=== PATIENT | female | born 1965 | race Two or more races ===

== ENCOUNTER 2016-08-19 05:46 | Inpatient (IN) | payer OTHER ==
[2016-08-19] VITALS (18 sets, daily range): BP systolic 114–155; BP diastolic 62–92
[~2016-08-19] VITALS: Ht 160 cm; Wt 80.7 kg
[2016-08-19] MEDS ORDERED: NKM (06:29)
[2016-08-19] MEDS ORDERED: LR 1000ml 1,000 ML IVLG SCH (06:51)
--- NOTE | 2016-08-19 06:54 | Anethesia Preoperative Eval ---
Anesthesia Pre-op PMH/ROS General Date of Evaluation: Aug 19, 2016 Time of Evaluation: 07:26 Anesthesiologist: Fabiana ASA Score: ASA 2 Mallampati Score Class I : Soft palate, uvula, fauces, pillars visible Class II: Soft palate, uvula, fauces visible Class III: Soft palate, base of uvula visible Class IV: Only hard plate visible Mallampati Classification: Class II Surgeon: Elizabeth Diagnosis: Back Pain Surgical Procedure: ACDF C4-7, Iliac Bone Graft Anesthesia History: none Family History: no anesthesia problems Allergies: Coded Allergies: No Known Allergies (Unverified , 08/16/16) Medications: see eMAR Past Medical History Musculoskeletal/Integumentary: Reports: other - Cervical Radiculopathy Other: obesity - BMI 31 PSxH Narrative: R Hand SX 06 Anesthesia Pre-op Phys. Exam Physician Exam Last Vital Signs Date Time Temp Pulse Resp B/P Pulse Ox O2 Delivery O2 Flow Rate FiO2 08/19/16 06:11 97.2 69 18 143/78 99 Room Air Constitutional: NAD Neurologic: CN 2-12 intact Cardiovascular: RRR Respiratory: CTA Gastrointestinal: S/NT/ND Airway Exam Mallampati Score: Class II MO: full ROM: limited Teeth: intact Anesthesia Pre-op A/P Risk Assessment & Plan Assessment: ASA 2 Plan: GA, Glidescope, BIS Status Change Before Surgery: No Pre-Antibiotics Dru Grams Ancef IV Given Within 1 Hr of Incision: Yes Time Given: 07:41 Desmond Jung MD Aug 19, 2016 06:54
--- NOTE | 2016-08-19 06:56 | Immediate Post-Op Evaluation ---
Immediate Post-Op Evalulation Immediate Post-Op Evalulation Procedure: ACDF C4-7, Iliac Bone Graft Date of Evaluation: Aug 19, 2016 Time of Evaluation: 11:34 IV Fluids: 1000 MG Blood Products: 0 Estimated Blood Loss: 75 Urinary Output: 200 Blood Pressure Systolic: 132 Blood Pressure Diastolic: 76 Pulse Rate: 64 Respiratory Rate: 16 O2 Sat by Pulse Oximetry: 100 Temperature (Fahrenheit): 97 Pain Score (1-10): 3 Nausea: No Vomiting: No Complications 0 Patient Status: awake, reacts, patent, extubated, none Hydration Status: adequate Dru Grams Ancef IV Given Within 1 Hr of Incision: Yes Desmond Jung MD Aug 19, 2016 06:56
[2016-08-19] MEDS ORDERED: Ketorolac 30mg Inj IV PRN (07:00)
[2016-08-19] MEDS ORDERED: Atropine Inj 1mg/10ml Syr IV PRN (07:00)
[2016-08-19] MEDS ORDERED: ceFAZolin 2gm/50ml Premix 50 ML IVPB ONE (07:00)
[2016-08-19] MEDS ORDERED: Norco 7.5mg/325mg tab ORAL PRN ×3 (07:00→13:30)
[2016-08-19] MEDS ORDERED: DiphenhydrAMINE 50mg/ml Inj IVP PRN (07:00)
[2016-08-19] MEDS ORDERED: Oxycodone/Acetaminophen 5-325 ORAL PRN (07:00)
[2016-08-19] MEDS ORDERED: Norco 5mg/325mg tab ORAL PRN ×2 (07:00→13:30)
[2016-08-19] MEDS ORDERED: Hydromorphone 0.5mg/0.5ml inj IVP PRN (07:00)
[2016-08-19] MEDS ORDERED: Metoclopramide 10mg/2ml Inj IVP PRN (07:00)
[2016-08-19] MEDS ORDERED: Labetalol 5mg/ml 20ml vial IV PRN (07:00)
[2016-08-19] MEDS ORDERED: fentaNYL 100 mcg/2 mL IV PRN (07:00)
[2016-08-19] MEDS ORDERED: LORazepam Inj 2mg/ml 1ml IV PRN (07:00)
[2016-08-19] MEDS ORDERED: Ketorolac 60mg Inj IV PRN (07:00)
[2016-08-19] MEDS ORDERED: Midazolam 2mg/2ml Inj IVP PRN (07:00)
[2016-08-19] MEDS ORDERED: Meperidine 25mg/ml Inj IV PRN (07:00)
[2016-08-19] MEDS ORDERED: Thrombin 5000 units TOPIC ONE (07:05)
[2016-08-19] MEDS ORDERED: Bacitracin 50000 Units Vial ONE (07:06)
[2016-08-19] MEDS ORDERED: Vancomycin 1gm inj IVPB ONE (07:06)
[2016-08-19] MEDS ORDERED: Bupivacaine w/Epi 0.5% 30ml Vial INJ ONE (07:06)
[2016-08-19] MEDS ORDERED: Acetaminophen (Non formulary) 100 ML IV ONE (07:15)
[2016-08-19] MEDS ORDERED: NS Irrig 1000ml ONE (07:30)
[2016-08-19] MEDS ORDERED: Midazolam 2mg/2ml Inj ONE (07:30)
[2016-08-19] MEDS ORDERED: fentaNYL 250mcg/5ml ONE (07:30)
[2016-08-19] MEDS ORDERED: Propofol 10mg/ml 100ml btl IV ONE (07:30)
[2016-08-19] MEDS ORDERED: Lidocaine 1% MPF 10mg/ml 5ml ONE (07:30)
[2016-08-19] MEDS ORDERED: Glycopyrrolate 0.2mg/ml 1ml Vial ONE (07:30)
[2016-08-19] MEDS ORDERED: Zemuron 50mg/5ml Inj IV ONE (07:30)
[2016-08-19] MEDS ORDERED: Neostigmine 1mg/ml 10ml Inj ONE (07:30)
[2016-08-19] MEDS ORDERED: Sterile Water Irrig 1000ml IRRIG ONE (07:30)
[2016-08-19] MEDS ORDERED: LR 1000ml ONE (07:30)
[2016-08-19] MEDS ORDERED: Dexamethasone 4mg/ml vial ONE (07:30)
--- NOTE | 2016-08-19 07:37 | Pre-Procedure Note/Attestation ---
Pre-Procedure Note/Attestation Complete Prior to Procedure Procedure Narrative: acdf c4-7 Indications for Procedure Pre-Operative Diagnosis: cervical radiculopathy Attestation I attest that I discussed the nature of the procedure; its benefits; risks and complications; and alternatives (and the risks and benefits of such alternatives ), prior to the procedure, with the patient (or the patient's legal district representative). I attest that, if there was a reasonable possibility of needing a blood transfusion, the patient (or the patient's legal district representative) was given the [facility] standardized written summary, pursuant to the [place] Blood Safety Act ([place] Health and Safety Code # 1645, as amended). I attest that I re-evaluated the patient just prior to the surgery and that there has been no change in the patient's H&P, except as documented below: SHANA ARMENTA Aug 19, 2016 07:37
--- NOTE | 2016-08-19 07:40 | 48 Hour Post Anesthesia Eval ---
Post Anesthesia Evaluation Procedure: ACDF C4-7, Iliac Bone Graft SHANA ARMENTA Aug 19, 2016 07:40
--- NOTE | 2016-08-19 11:26 | Brief Operative Note ---
Immediate Post Operative Note Operative Note Pre-op Diagnosis: cervical radiculopathy Procedure: acdf c4-7 Post-op Diagnosis: cerv radic Post-op Diagnosis: same as pre-op Findings: consistent w/pre-op dx studies Surgeon: lexi [employer] Consultant: reyes Anesthesiologist: keo Specimen: none Complications: none Condition: stable Fluids: 1000cc Estimated Blood Loss: volume - 75cc Drains: none Implant(s) used?: Yes SHANA ARMENTA Aug 19, 2016 11:26
[2016-08-19] MEDS ORDERED: HYDROmorphone 1mg/ml Carpuject IVP PRN (13:30)
[2016-08-19] MEDS ORDERED: Naloxone 0.4mg/ml Inj IVP PRN (13:30)
[2016-08-19] MEDS ORDERED: HYDROmorphone 1mg/ml Carpuject SUBQ PRN (13:30)
[2016-08-19] MEDS: D5 1/2NS 1,000 ML IV SCH ×2 (13:58→21:37)
[2016-08-19] MEDS: ceFAZolin sod 1 GM in D5W 55 ML IV SCH (14:51)
[2016-08-19] MEDS: Docusate 100mg cap ORAL SCH (17:42)
[2016-08-20] VITALS: BP 109/60
[2016-08-20] MEDS: ceFAZolin sod 1 GM in D5W 55 ML IV SCH ×2 (00:28→07:52)
[2016-08-20 04:00] VITALS: BP 106/65
[2016-08-20] MEDS: D5 1/2NS 1,000 ML IV SCH (07:52)
[2016-08-20] MEDS: Docusate 100mg cap ORAL SCH ×2 (07:52→16:51)
[2016-08-20 08:00] VITALS: BP 113/69
--- NOTE | 2016-08-20 10:13 | 48 Hour Post Anesthesia Eval ---
Post Anesthesia Evaluation Procedure: ACDF C4-7, Iliac Bone Graft Date of Evaluation: Aug 20, 2016 Time of Evaluation: 11:40 Blood Pressure Systolic: 113 0: 69 Pulse Rate: 61 Respiratory Rate: 20 Temperature (Fahrenheit): 98.0 O2 Sat by Pulse Oximetry: 98 Airway: patent Nausea: No Vomiting: No Pain Intensity: 5 If pain is > 6 Comment: Asked nurse to give pain meds now Hydration Status: adequate Cardiopulmonary Status: Stable Mental Status/LOC: patient returned to baseline Follow-up Care/Observations: As per surgery Post-Anesthesia Complications: No anesthetic complication Follow-up care needed: N/A VITOR RONQUILLO M.D. Aug 20, 2016 10:13
[2016-08-20 12:00] VITALS: BP 108/62
[2016-08-20] MEDS ORDERED: Influenza Virus Vaccine 0.5ml IM ONE (12:00)
[2016-08-20 16:00] VITALS: BP 110/78
--- NOTE | 2016-08-20 18:49 | General Progress Note ---
Progress Note Progress Note doing well min pain no arm pain o: inc cdi 5/5 motor ue lt intact brace on ap: doing well dc tonight with meds fu 7 days instructions given SHANA ARMENTA Aug 20, 2016 18:49
[2016-08-20] MEDS ORDERED: D5 1/2NS 1000ml IV ONE (19:29)
[2016-08-20] MEDS ORDERED: NS 550ML IV ONE (19:29)
[2016-08-20] MEDS ORDERED: Tubing IV Blood Pump IV ONE (19:29)
[2016-08-20] MEDS ORDERED: Tubing IV Secondary IV ONE (19:29)
--- NOTE | 2016-08-21 09:34 | Diagnostic Imaging Report ---
Indication: PAIN, Intra-Op Technique: Digital intraoperative images Comparison: None Findings: Digital intraoperative images document anterior surgical fusion of C4-C7. Impression: Intraoperative imaging, as described
--- NOTE | 2016-08-21 13:47 | Operative Note - Dictated ---
DATE OF OPERATION: 08/19/2016 PREOPERATIVE DIAGNOSIS: C4-C5, C5-C6, and C6-C7 disk protrusion/herniation with severe stenosis cord compression and bilateral upper extremity neurologic symptoms. POSTOPERATIVE DIAGNOSIS: C4-C5, C5-C6, C6-C7 disk protrusion/herniation with severe stenosis cord compression and bilateral upper extremity neurologic symptoms. PROCEDURE PERFORMED: Is the followin. Interbody arthrodesis at C4-C5,C5-C6 and C6-C7. 2. Anterior cervical instrumentation at C4 through C7. 3. Anterior cervical diskectomy and decompression of the spinal canal and foramina at C4-C5, C5-C6 and C6-C7 4. Acquisition of autograft. 5. See placement of PEEK interbody device at C4-C5, C5-C6 and C6-C7 with autograft and allograft. 6. Intraoperative use of fluoroscopy. 7. Intraoperative use of microscope. 8. SSEP/EMG/MEP. SURGEON: Chidi Johnson M.D. SCAN COORDINATOR: Shadi Franco M.D. ANESTHESIOLOGIST: Desmond Jung M.D. ANESTHESIA: General endotracheal anesthesia. ESTIMATED BLOOD LOSS: 100 cubic centimeters. INTRAVENOUS ANTIBIOTICS: 2 g of Ancef. BACKGROUND INSTRUCTIONS: The patient is a pleasant female, who failed nonoperative treatment and continued to have neck pain and upper extremity neurologic symptoms an option for above treatment was given. Risks, alternatives, and benefits were discussed with the patient. Risks include, but are not limited to, anesthesia complications including , medical complications including liver, kidney, and cardiopulmonary deficits, bleeding infection, dysphonia, dysphagia, hematoma of the neck, nerve root injury, paralysis, spinal cord injury, CSF leak, dural tear, fracture of the hardware, loosening of the hardware, need for revision decompression and fusion, swallowing difficulties, esophageal injury, tracheal injury, recurrent laryngeal nerve injury, tendon injury, as well as other complications including compartment syndrome. The patient understood and wished to proceed. All patient's questions were answered. Written and verbal consent was given. No guarantees were given. OPERATIVE FINDINGS: 1. Herniated nucleus pulposus, stenosis, disk protrusions and herniations at C4-C5, C5-C6 and C6-C7 with adherent disk herniation at C6-C7. 2. Neural foraminal stenosis at C4-C5,C5-C6 and C6-C7. DESCRIPTION OF OPERATION: The patient was brought into the operating room supine on a stretcher. Appropriate IV lines were placed by the anesthesiologist. A 2 g of Ancef was administered. The surgical timeout was called. The patient was induced and intubated without complication, was positioned onto the operating room table with the neck was placed in neutral alignment. Arms were tucked by the sides. All bony prominences were well padded as well as four extremities. SSEP/EMG/MEP monitoring leads were placed and baseline recordings were done and remained stable throughout the case. Preoperative fluoroscopy revealed the planned incision to be over C4-C5 and C6-C7. Fluoroscopy revealed the neck to be in adequate alignment. The neck was prepped and draped in the usual sterile fashion with alcohol, chlorhexidine scrub, ChloraPrep, and [place]an draping. Me and my resident assistant were probably properly prepped and gowned and incision was carried out with a scalpel on the anterior right side of the neck. Hemostasis was achieved with bipolar cautery. The platysma was incised, blunt dissection was carried out in the interval between the strap muscles and sternocleidomastoid. Superficial cervical fascia was dissected caudally as well cephalad. Carotid pulse was palpated and found to be lateral to the field of dissection. Deep cervical fascia was encountered. Once the deep cervical fascia was found, blunt dissection was carried out with [place] as well as finger dissection to find the prevertebral space. The longus coli was found on both sides of the spine and was subperiosteally dissected. The spinal needle was placed at the disk level and the C4-C5,C5-C6 and C6-7 disk spaces were positively identified. The whole case was done with the intraoperatively sterilely draped microscope. At this point, attention was diverted to doing the diskectomy at C6-C7. A belt sander stone retractors were set into place with a fresh # 15 scalpel a box incision was made in the anterior anulus with straight curved curette #1, #2 and #3 Kerrison punches, a radical diskectomy was accomplished. A high-speed drill was used to remove bone from the spinal canal. Micro set #1 and #2 Kerrison punches were used to remove the PLL. All disc herniation was removed and except for one C6 disk herniation that was completely adherent to the dura. This was drilled down to a thin disk until was no longer compressing the dura. Further manipulation of the disc, which was adherent to the dura was found to be too dangerous and there was a high chance of dural tear. Therefore, the disk was left and attached to the dura. The foramina was completely decompressed, the spinal canal was completely decompressed. Valsalva at 40 mmHg was done. There was no CSF leak. Now, the retractors would change to the C5-C6 level and with the same instruments straight curved curette and scalpel #1, #2 and #3 Kerrison punches and high-speed drill. A radical diskectomy was accomplished and endplate cartilage was removed. Endplate bone was well preserved. Drilling was done to the posterior longitudinal ligament and micro set #2 curette. The PLL was removed. All disc herniation was removed. A complete decompression of the spinal canal, the spinal cord, lateral recess foramina and a Valsalva was done. There was no CSF leak. Complete decompression was assured at C5-C6. Now, attention was diverted to C4-C5 with same instruments including a scalpel #1, #2, and #3 Kerrison punches, straight and curved curettes, micro set curettes, high speed drill, a radical diskectomy was done. Endplate cartilage was removed and endplate bone was well preserved. The anterior foramina were decompressed. All exiting nerve roots were decompressed including the spinal canal, spinal cords, lateral recess foramina and a Valsalva 40 mmHg was done. There was no CSF leak. Copious triple antibiotic solution was used at all disc spaces and now attention was given to placement of the interbody cages from the spinal element system was used with PEEK lordotic changes. Trials were placed and the following PEEK interbody devices were chosen packed with autograft from the vertebral bodies as well as allograft study from [place]. A 7 mm lordotic cage was placed at C6-C7 and a 7 mm lordotic cage was placed at C5-C6 and 6 mm lordotic cage was placed at C4-C5 with excellent recreation of lordosis. AP and lateral fluoroscopy was done and revealed the instrumentation to be in good position. Now a [place] aspect plate was chosen, 45 mm three-level plate and was fixed to the anterior surface of the C4 through the C7 vertebral bodies with 4.0 x 14 mm screws. Each screw had excellent purchase within the bone and sat below the locking mechanism of the plate appropriately. Final AP and lateral fluoroscopy revealed all instrumentation to be in good position. Final EBL was 100 mL. The wound was copiously irrigated with triple antibiotic solution throughout the case. Hemostasis was achieved. There was no bleeding, and therefore it was deemed not necessary to use a Hemovac. At this point, attention was diverted to closure. The platysma was closed with 2-0 Vicryl sutures. The subcuticular layer was closed with 3-0 Vicryl sutures. The skin was closed with Dermabond. Sterile dressing tape was placed. C-collar was placed. The patient was extubated, was taken the recovery room in stable condition and found to be neurovascularly intact. Was admitted to the hospital with spinal precaution instructions and postoperative instructions. Chidi Johnson M.D. DR: Timoteo JOB#: [id number] CC:
--- NOTE | 2016-08-21 23:20 | Discharge Summary ---
Discharge Summary Hospital Course Date of Admission Aug 19, 2016 at 05:46 Date of Discharge Aug 20, 2016 at 19:30 Admitting Diagnosis ACDF C4-7 HPI Ailyn Segundo is a 51 year old female who was admitted on Aug 19, 2016 at 05:46 for Cervical Radiculopathy Hospital Course [id number] Discharge Discharge Disposition Patient was discharged to Home (01) Discharge Diagnoses: Natalia Whitten NP Aug 21, 2016 23:20
--- NOTE | 2016-08-22 15:58 | Discharge Summary 2 SIG ---
DATE OF ADMISSION: 08/19/2016 DATE OF DISCHARGE: 08/20/2016 BRIEF HOSPITAL COURSE: The patient is a 51-year-old female who failed nonoperative treatment and continued to have neck pain and upper extremity neurologic symptoms. The patient was admitted on 08/19/2016 and underwent the ACDF on C4 to C7. Postoperatively, she was given pain management and was started on clear liquid diet. She was encouraged to use incentive spirometry. The patient's diet was eventually advanced. Campuzano catheter was discontinued. She was seen by physical therapy and occupational therapy. The patient was eventually discharged home to follow up as outpatient. FINAL DIAGNOSES: C4-C5, C5-C6, and C6-C7 disk protrusion/herniation with severe stenosis, cord compression, and bilateral upper extremity neurologic symptoms status post anterior cervical diskectomy and fusion on C4-C7. Chidi Johnson M.D. I have been assigned to dictate discharge summary on this account and I was not involved in the patient's management. Natalia Whitten N.P. DR: Jonathan JOB#: [id number] CC:
== END 2016-08-20 19:30 | disposition home or self-care (01) | DRG 472 ==
LOC: SDSOVERFLO 05:46 → 3E 12:55
PROC: 0RG20A0 Fusion of 2 or more Cervical Vertebral Joints with Interbody Fusion Device, Anterior Approach, Anterior Column, Open Approach (ICD-10-PCS; principal; 2016-08-19 07:30)
PROC: 0RG2070 Fusion of 2 or more Cervical Vertebral Joints with Autologous Tissue Substitute, Anterior Approach, Anterior Column, Open Approach (ICD-10-PCS; principal; 2016-08-19 07:30)
PROC: 0RT30ZZ Resection of Cervical Vertebral Disc, Open Approach (ICD-10-PCS; principal; 2016-08-19 07:30)
DX: M50.123 Cervical disc disorder at C6-C7 level with radiculopathy (principal); M50.023 Cervical disc disorder at C6-C7 level with myelopathy; E66.9 Obesity, unspecified; Z68.31 Body mass index [BMI] 31.0-31.9, adult; M48.02 Spinal stenosis, cervical region; R29.818 Other symptoms and signs involving the nervous system
CPT/HCPCS: 36415; 72040; 76001; 86850; 86900; 86901; 87081; 94003; 94150; J2180; J2250; J2405; J2710